=== PATIENT | female | born 1980 | race Hispanic/Latino ===

== ENCOUNTER 2022-06-30 11:38 | Emergency (ER) | payer SELFPAY ==
[2022-06-30 12:41] LABS: Urine Blood Negative (Negative); Urine Glucose Negative (Negative); Urine Protein Negative (Negative); Urine Specific Gravity 1.015 (1.005-1.030)
[2022-06-30 12:54] LABS: Urine Specific Gravity/Preg 1.015 (1.005-1.030)
[2022-06-30] MEDS ORDERED: MORPHINE 4 MG/ML SYR ONE (12:57)
[2022-06-30] MEDS ORDERED: FAMOTIDINE 20 MG/2 ML VIAL IV ONE (12:57)
[2022-06-30] MEDS ORDERED: NA CHLORIDE 0.9% 1,000 ML ONE (12:57)
--- NOTE | 2022-06-30 12:57 | RAD REPORT ---
EXAM DESCRIPTION: US - Abdomen Exam Limited - 06/30/2022 12:28 pm CLINICAL HISTORY: Abd pain COMPARISON: No comparisons TECHNIQUE Sonographic grayscale and color flow images of the abdomen were obtained. FINDINGS: The gallbladder demonstrates no gallstones. No pericholecystic fluid or gallbladder wall t hickening. The common bile duct is normal measuring 4 mm. The visualized aspects of the liver demonstrates no findings of intrahepatic biliary dilatation. A complex cystic and solid mass is present in the central abdomen centered on the midline, measuring 22.6 x 16.2 x 24.3 centimeter in greatest dimensions, with mildly thickened septations, and a lobulat ed mixed cystic and solid component left of midline. The solid components demonstrate internal vascul arity. Small to moderate volume of free fluid is seen in the right lower quadrant as well. IMPRESSION: Indeterminate complex cystic and solid mass in the central abdomen, measuring 24.3 x 22. 6 x 16.2 centimeters. This is incompletely characterized on ultrasound. Additional evaluation by cont rast enhanced CT or MRI is recommended, as malignancy cannot be excluded. No acute abnormality of the gallbladder. No cholelithiasis. Small to moderate amount of free fluid is seen in the right lower quadrant.
[2022-06-30 13:05] LABS: Hematocrit 41.7 % (36.0-45.0); MPV 8.7 fL (7.6-11.3); RBC Red Blood Cell Count 4.96 M/uL (3.86-4.86)
[2022-06-30 13:06] LABS: Absolute Lymphocytes (CBC) 1.7 K/uL (0.7-4.9)
[2022-06-30 13:09] LABS: Urine Bacteria <20 /HPF (<20); Urine Mucus Slight /HPF (None Seen); Urine RBC <5 /HPF (None Seen)
[2022-06-30] MEDS ORDERED: ONDANSETRON 4 MG/2 ML VIAL ONE (13:31)
[2022-06-30 15:07] LABS: Albumin 3.2 g/dL (3.4-5.0); Bilirubin Total 0.5 mg/dL (0.2-1.0)
[2022-06-30 15:09] LABS: Potassium 3.8 mmol/L (3.5-5.1)
[2022-06-30 15:14] LABS: SARS-CoV-2 Antigen Rapid Res Negative (Negative)
--- NOTE | 2022-06-30 16:37 | RAD REPORT ---
EXAM DESCRIPTION: CT - Abdomen Pelvis W Contrast - 06/30/2022 4:01 pm CLINICAL HISTORY: Right upper quadrant pain and bloating. Event or hernia COMPARISON: Abdominal ultrasound of earlier same day TECHNIQUE: Biphasic, helical CT imaging of the abdomen and pelvis was performed following intravenou s administration of 94 mL Isovue-300. Multiplanar reformats were generated and reviewed. All CT scans are performed using dose optimization technique as appropriate and may include automated exposure control or mA/KV adjustment according to patient size. FINDINGS: No suspicious findings in the lung bases. Mild peripheral platelike atelectasis or scarrin g is present. A large mixed cystic and solid mass is seen in the central abdomen, appearing to arise from the left adnexal region, measuring 22.6 x 15.8 x 19.3 centimeter, with thin enhancing septations, and a lobula maggie enhancing solid component along its left aspect. Moderate ascites. The liver, spleen, and pancreas show no suspicious findings. Gallbladder and biliary tree are also wi thout suspicious finding. Symmetric renal function is seen with no hydronephrosis or suspicious renal mass. No dilated bowel loops or bowel wall thickening. No free air or inflammatory stranding. No peritoneal soft tissue deposits. Signed report No hernia, mass or bulky lymphadenopathy. The urinary bladder is without significant finding. No suspicious bony findings. IMPRESSION: Large mixed cystic and solid mass appears to arise from the left adnexal region, concern ing for an ovarian cystic neoplasm. Moderate ascites. No evidence of suspicious adenopathy or peritoneal soft tissue deposits.
[2022-06-30] MEDS ORDERED: KETOROLAC 30 MG/ML INJ ONE ×2 (17:57→20:35)
--- NOTE | 2022-06-30 18:48 | EDPHYS ---
Physician Documentation [facility] Name: Xenia Bonilla Age: 41 yrs Sex: Female : 1980 Arrival Date: 06/30/2022 Time: 11:43 Bed 19 Private MD: ED Physician Chuck Lindsey HPI: 06/30 16:56 This 41 yrs old Female presents to ER via Ambulatory with complaints of snw Abdominal Pain - bloating. 16:56 The patient presents with abdominal pain that is diffuse. Onset: The symptoms/episode snw began/occurred acutely. The symptoms do not radiate. Associated signs and symptoms: Pertinent positives: bloating. The symptoms are described as steady. Severity of pain: At its worst the pain was mild moderate. The patient has not experienced similar symptoms in the past. 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 - Social history:: Smoking status: Patient denies any tobacco usage or history of. ROS: 12:51 Constitutional: Negative for fever, chills, and weight loss, Eyes: Negative for injury, snw pain, redness, and discharge, ENT: Negative for injury, pain, and discharge, Neck: Negative for injury, pain, and swelling, Cardiovascular: Negative for chest pain, palpitations, and edema, Respiratory: Negative for shortness of breath, cough, wheezing, and pleuritic chest pain, Back: Negative for injury and pain, : Negative for injury, bleeding, discharge, and swelling, MS/Extremity: Negative for injury and deformity, Skin: Negative for injury, rash, and discoloration, Neuro: Negative for headache, weakness, numbness, tingling, and seizure, Psych: Negative for depression, anxiety, suicide ideation, homicidal ideation, and hallucinations. 12:51 Abdomen/GI: Positive for abdominal pain. Exam: 12:50 Constitutional: This is a well developed, well nourished patient who is awake, alert, snw and in no acute distress. Head/Face: Normocephalic, atraumatic. Eyes: Pupils equal round and reactive to light, extra-ocular motions intact. Lids and lashes normal. Conjunctiva and sclera are non-icteric and not injected. Cornea within normal limits. Periorbital areas with no swelling, redness, or edema. ENT: Nares patent. No nasal discharge, no septal abnormalities noted. Tympanic membranes are normal and external auditory canals are clear. Oropharynx with no redness, swelling, or masses, exudates, or evidence of obstruction, uvula midline. Mucous membranes moist. Neck: Trachea midline, no thyromegaly or masses palpated, and no cervical lymphadenopathy. Supple, full range of motion without nuchal rigidity, or vertebral point tenderness. No Meningismus. Chest/axilla: Normal chest wall appearance and motion. Nontender with no deformity. No lesions are appreciated. Cardiovascular: Regular rate and rhythm with a normal S1 and S2. No gallops, murmurs, or rubs. Normal PMI, no JVD. No pulse deficits. Respiratory: Lungs have equal breath sounds bilaterally, clear to auscultation and percussion. No rales, rhonchi or wheezes noted. No increased work of breathing, no retractions or nasal flaring. Back: No spinal tenderness. No costovertebral tenderness. Full range of motion. Skin: Warm, dry with normal turgor. Normal color with no rashes, no lesions, and no evidence of cellulitis. MS/ Extremity: Pulses equal, no cyanosis. Neurovascular intact. Full, normal range of motion. Neuro: Awake and alert, GCS 15, oriented to person, place, time, and situation. Cranial nerves II-XII grossly intact. Motor strength 5/5 in all extremities. Sensory grossly intact. Cerebellar exam normal. Normal gait. 12:50 Abdomen/GI: Inspection: distension, that is moderate, gravid appearance, is noted, Bowel sounds: diminished, in all quadrants, Palpation: moderate abdominal tenderness, in all quadrants. Vital Signs: 11:57 BP 123 / 78; Pulse 91; Resp 16; Pulse Ox 98% ; Weight 88.45 kg; Height 5 ft. 2 in. jh5 (157.48 cm); Pain 6/10; 13:00 BP 118 / 81; Pulse 73; Resp 16; Pulse Ox 97% on R/A; Pain 3/10; sg5 14:00 BP 97 / 57; Pulse 77; Resp 16; Pulse Ox 95% ; Pain 3/10; sg5 15:00 BP 94 / 55; Pulse 106; Resp 16; Pulse Ox 96% on R/A; Pain 3/10; sg5 15:51 BP 114 / 75; Pulse 110; Resp 16; Pulse Ox 96% on R/A; Pain 3/10; sg5 16:50 BP 120 / 73; Pulse 111; Resp 16; Pulse Ox 96% on R/A; Pain 3/10; sg5 17:57 BP 110 / 68; Pulse 108; Resp 18; Temp 98.6; Pulse Ox 100% on R/A; ph 18:47 BP 112 / 63; Pulse 109; Resp 16; Pulse Ox 95% on R/A; Pain 4/10; sg5 20:30 BP 112 / 73; Pulse 102; Resp 18; Pulse Ox 99% on R/A; aa9 11:57 Body Mass Index 35.67 (88.45 kg, 157.48 cm) [facility] MDM: 12:01 Patient medically screened. snw 16:58 Differential diagnosis: bowel obstruction, cholecystitis, diverticulitis, pancreatitis. snw Data reviewed: vital signs, nurses notes, lab test result(s), radiologic studies, CT scan, ultrasound. Management of patient was discussed with the following: Dr. Lindsey. Counseling: I had a detailed discussion with the patient and/or guardian regarding: the historical points, exam findings, and any diagnostic results supporting the discharge/admit diagnosis, lab results, radiology results, the need to transfer to another facility, [facility] does not immediately have the required specialist. Response to treatment: the patient's symptoms have mildly improved after treatment. 16:59 Transition of care: After a detail discussion of the patient's case, care is snw transferred to Chuck Lindsey MD. 06/30 12:01 Order name: CBC with Diff snw 06/30 12:01 Order name: CMP snw 06/30 12:01 Order name: Lipase snw 06/30 12:01 Order name: Urine Microscopic Only snw 06/30 12:41 Order name: Urine Dipstick-Ancillary; Complete Time: 12:43 EDMS 06/30 12:42 Order name: Urine --Ancillary (enter results) em1 06/30 12:01 Order name: US Abdomen Limited snw 06/30 12:54 Order name: Urine --Ancillary; Complete Time: 12:57 EDMS 06/30 13:09 Order name: Urine Microscopic Only; Complete Time: 13:19 EDMS 06/30 13:09 Order name: CBC with Automated Diff; Complete Time: 13:19 EDMS 06/30 13:39 Order name: SARS RAPID snw 06/30 15:10 Order name: Comprehensive Metabolic Panel EDMS 06/30 15:10 Order name: Lipase EDMS 06/30 15:15 Order name: SARS-COV-2 Antigen Rapid; Complete Time: 15:22 EDMS 06/30 12:01 Order name: IV Saline Lock; Complete Time: 12:43 snw 06/30 12:01 Order name: Labs collected and sent; Complete Time: 16:37 snw 06/30 12:01 Order name: Urine Dipstick-Ancillary (obtain specimen); Complete Time: 12:41 snw 06/30 12:01 Order name: Urine Test (obtain specimen); Complete Time: 12:41 snw 06/30 12:28 Order name: CT Abd/Pelvis - IV Contrast Only snw 06/30 12:57 Order name: US; Complete Time: 12:58 EDMS 06/30 16:38 Order name: CT; Complete Time: 16:53 EDMS Administered Medications: 13:04 Drug: Pepcid (famotidine) 20 mg Route: IVP; Site: right antecubital; sg5 19:17 Follow up: Response: No adverse reaction ph 13:04 Drug: morphine 4 mg Route: IVP; Infused Over: 4 mins; Site: right antecubital; sg5 19:17 Follow up: Response: No adverse reaction ph 13:04 Drug: NS 0.9% 1000 ml Route: IV; Rate: 125 ml/hr; Site: right antecubital; sg5 19:17 Follow up: IV Status: Infusion continued upon transfer ph 13:30 Drug: Zofran (Ondansetron) 4 mg Route: IVP; Site: right antecubital; ph 19:18 Follow up: Response: No adverse reaction ph 17:55 Drug: Ketorolac 15 mg Route: IVP; Site: right antecubital; ph 19:17 Follow up: Response: No adverse reaction; Pain is decreased ph 20:45 Drug: Ketorolac 15 mg Route: IVP; Site: right antecubital; aa9 20:49 Follow up: Response: No adverse reaction aa9 Disposition: 18:51 Co-signature as Attending Physician, Chuck Lindsey MD I agree with the assessment and damian plan of care. Disposition Summary: 06/30/22 18:48 Transfer Ordered Transfer Location: [facility] Reason: Higher level of care damian Condition: Stable damian Problem: new damian Symptoms: have improved damian Accepting Physician: TO ERNESTO, RUBBER TIRE CURER(06/30/22 20:52) aa9 Diagnosis - Intra-abdominal and pelvic swelling, mass and lump, unspecified site - LEFT damian ADENEXAL [id number] CM - Other ascites - MODERATE damian - Abdominal pain, Generalized damian Discharge Instructions: - Discharge Summary Sheet em1 Forms: - Medication Reconciliation Form em1 - SBAR form em1 Signatures: Dispatcher [employer] EDMS Chuck Lindsey MD MD cha Waters, Shelly, CERTIFIER-C CERTIFIER-Csnw Honey Leyva RN RN Smitha Ferreira RN RN 5 Manda Mendoza RN RN aa9 Jessica Godinez RN RN sg5 Corrections: (The following items were deleted from the chart) 20:52 18:48 TO ERNESTO, RUBBER TIRE CURER damian aa9
--- NOTE | 2022-06-30 18:48 | ER ---
Nurse's Notes [facility] Name: Xenia Bonilla Age: 41 yrs Sex: Female : 1980 Arrival Date: 06/30/2022 Time: 11:43 Bed 19 Private MD: Diagnosis: Intra-abdominal and pelvic swelling, mass and lump, unspecified site-LEFT ADENEXAL [id number] CM;Other ascites-MODERATE;Abdominal pain, Generalized Presentation: 06/30 11:57 Chief complaint: Patient states: abdominal pain and bloating x1 week and its up my jh5 upper right belly and its hard and bloated. Coronavirus screen: Vaccine status: Patient reports receiving the 2nd dose of the covid vaccine. Client denies travel out of the [place] in the last 14 days. Ebola Screen: Patient negative for fever greater than or equal to 101.5 degrees Fahrenheit, and additional compatible Ebola Virus Disease symptoms Patient denies exposure to infectious person. Patient denies travel to an Ebola-affected area in the 21 days before illness onset. Initial Sepsis Screen: Does the patient meet any 2 criteria? No. Patient's initial sepsis screen is negative. Does the patient have a suspected source of infection? No. Patient's initial sepsis screen is negative. Risk Assessment: Do you want to hurt yourself or someone else? Patient reports no desire to harm self or others. 11:57 Method Of Arrival: Ambulatory [facility] 11:57 Acuity: CHILO 3 jh5 16:38 Onset of symptoms was June 30, 2022. Triage Assessment: 11:59 General: Appears uncomfortable, well groomed, well developed, Behavior is calm, [facility] cooperative, appropriate for age. Pain: Complains of pain in abdomen. GI: Reports upper abdominal pain. 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 - Social history:: Smoking status: Patient denies any tobacco usage or history of. Screenin:17 [facility] ED Fall Risk Assessment (Adult) History of falling in the last 3 months, ph including since admission No falls in past 3 months (0 pts) Confusion or Disorientation No (0 pts) Intoxicated or Sedated. Abuse screen: Denies threats or abuse. Denies injuries from another. Nutritional screening: No deficits noted. Tuberculosis screening: No symptoms or risk factors identified. Assessment: 12:43 General: Appears in no apparent distress. comfortable, Behavior is calm, cooperative, sg5 appropriate for age. Pain: Complains of pain in upper abdomen Pain currently is 5 out of 10 on a pain scale. Neuro: No deficits noted. Level of Consciousness is awake, alert, obeys commands, Oriented to person, place, time, situation. Cardiovascular: No deficits noted. Heart tones S1 S2 present Capillary refill < 3 seconds Rhythm is regular. Respiratory: No deficits noted. Airway is patent. GI: Bowel sounds present X 4 quads. Guarding noted in top upper quadrants and abdomen diffusely Reports upper abdominal pain, Pain is 5 out of 10 on a pain scale. : No deficits noted. No signs and/or symptoms were reported regarding the genitourinary system. EENT: No deficits noted. No signs and/or symptoms were reported regarding the EENT system. Derm: No deficits noted. No signs and/or symptoms reported regarding the dermatologic system. Musculoskeletal: No deficits noted. No signs and/or symptoms reported regarding the musculoskeletal system. 15:00 Reassessment: Patient appears in no apparent distress at this time. Patient and/or ph family updated on plan of care and expected duration. Pain level reassessed. Patient is alert, oriented x 3, equal unlabored respirations, skin warm/dry/pink. 17:55 Reassessment: Patient appears in no apparent distress at this time. Patient and/or ph family updated on plan of care and expected duration. Pain level reassessed. Patient is alert, oriented x 3, equal unlabored respirations, skin warm/dry/pink. Pt c/o headache, verbal order received for 15 mg toradol IVP, awaiting transfer. 18:46 Reassessment: Patient appears in no apparent distress at this time. Patient and/or sg5 family updated on plan of care and expected duration. Pain level reassessed. Patient is alert, oriented x 3, equal unlabored respirations, skin warm/dry/pink. 20:32 Reassessment: Patient appears in no apparent distress at this time. Patient and/or aa9 family updated on plan of care and expected duration. Pain level reassessed. Patient is alert, oriented x 3, equal unlabored respirations, skin warm/dry/pink. 20:51 Reassessment: Patient appears in no apparent distress at this time. pt transferred via aa9 EMS,report provided to EMT service, pt and family understand need for transfer denies concerns at this time. Vital Signs: 11:57 BP 123 / 78; Pulse 91; Resp 16; Pulse Ox 98% ; Weight 88.45 kg; Height 5 ft. 2 in. 5 (157.48 cm); Pain 6/10; 13:00 BP 118 / 81; Pulse 73; Resp 16; Pulse Ox 97% on R/A; Pain 3/10; sg5 14:00 BP 97 / 57; Pulse 77; Resp 16; Pulse Ox 95% ; Pain 3/10; sg5 15:00 BP 94 / 55; Pulse 106; Resp 16; Pulse Ox 96% on R/A; Pain 3/10; sg5 15:51 BP 114 / 75; Pulse 110; Resp 16; Pulse Ox 96% on R/A; Pain 3/10; sg5 16:50 BP 120 / 73; Pulse 111; Resp 16; Pulse Ox 96% on R/A; Pain 3/10; sg5 17:57 BP 110 / 68; Pulse 108; Resp 18; Temp 98.6; Pulse Ox 100% on R/A; ph 18:47 BP 112 / 63; Pulse 109; Resp 16; Pulse Ox 95% on R/A; Pain 4/10; sg5 20:30 BP 112 / 73; Pulse 102; Resp 18; Pulse Ox 99% on R/A; aa9 11:57 Body Mass Index 35.67 (88.45 kg, 157.48 cm) [facility] ED Course: 11:43 Patient arrived in ED. as 11:59 Triage completed. [facility] 12:00 [facility]ruitt [facility]-C [facility] snw 12:00 Chuck Lindsey MD is Attending Physician. snw 12:00 Arm band placed on right wrist. [facility] 12:33 Inserted saline lock: 20 gauge in right antecubital area, using aseptic technique. 5 Blood collected. 13:11 Honey Leyva RN is Primary Nurse. ph 14:52 SARS RAPID Sent. ph 16:38 Patient has correct armband on for positive identification. Placed in gown. Bed in low ph position. Call light in reach. Side rails up X 1. Client placed on continuous cardiac and pulse oximetry monitoring. NIBP monitoring applied. 17:06 Transfer initiated with [facility]; transfer declined due to capacity. em1 17:56 Assist provider with bone marrow aspiration. ph 17:56 Patient transferred, IV remains in place. ph Administered Medications: 13:04 Drug: Pepcid (famotidine) 20 mg Route: IVP; Site: right antecubital; sg5 19:17 Follow up: Response: No adverse reaction ph 13:04 Drug: morphine 4 mg Route: IVP; Infused Over: 4 mins; Site: right antecubital; sg5 19:17 Follow up: Response: No adverse reaction ph 13:04 Drug: NS 0.9% 1000 ml Route: IV; Rate: 125 ml/hr; Site: right antecubital; sg5 19:17 Follow up: IV Status: Infusion continued upon transfer ph 13:30 Drug: Zofran (Ondansetron) 4 mg Route: IVP; Site: right antecubital; ph 19:18 Follow up: Response: No adverse reaction ph 17:55 Drug: Ketorolac 15 mg Route: IVP; Site: right antecubital; ph 19:17 Follow up: Response: No adverse reaction; Pain is decreased ph 20:45 Drug: Ketorolac 15 mg Route: IVP; Site: right antecubital; aa9 20:49 Follow up: Response: No adverse reaction aa9 Medication: 16:38 VIS not applicable for this client. ph Outcome: 18:48 ER care complete, transfer ordered by . damian 20:50 Transferred by ground EMS to [facility], Transfer form completed. aa9 20:50 Condition: stable 20:50 Instructed on the need for transfer. 20:52 Patient left the ED. aa9 Signatures: Chuck Lindsey MD MD cha Waters, Shelly, PLANT PRODUCTION WORKER-C PLANT PRODUCTION WORKER-CsnKristy Olivarez Eric em1 Honey Leyva RN RN ph Smitha Ferreira RN RN 5 Manda Mendoza RN RN aa9 Jessica Godinez RN RN sg5 Corrections: (The following items were deleted from the chart) 12:00 11:57 Pulse 91bpm; Resp 16bpm; Pulse Ox 98%; 88.45 kg; Height 5 ft. 2 in.; BMI: 35.6; jh5 Pain 10/16; jh5
[2022-06-30 22:02] VITALS: TEMP 98.6
[2022-06-30 22:05] VITALS: BP 112/73; O2SAT 99
[2022-06-30 22:21] LABS: Carcinoembryonic Antigen 0.5 ng/mL (0-5.0)
== END 2022-06-30 20:52 | disposition short-term general hospital (02) ==
LOC: ER 11:38
DX: R18.8 Other ascites (principal); R10.84 Generalized abdominal pain
CPT/HCPCS: 36415; 74177; 76705; 80053; 81003; 81015; 81025; 82378; 83690; 85025; 87811; 96361; 96374; 96375; 99285; J2405; J7030; Q9967